=== PATIENT | female | born 1975 | race Caucasian/White ===

== ENCOUNTER 2023-11-26 12:42 | Emergency (ER) | payer BC ==
[2023-11-26 13:16] VITALS: RESP 17
[2023-11-26] MEDS ORDERED: MECLIZINE HCL 25 MG TABLET (FP) ONE (13:33)
[2023-11-26] MEDS ORDERED: ACETAMINOPHEN 325 MG TABLET (FP) ONE (13:34)
[2023-11-26] MEDS: SODIUM CHLORIDE 0.9% 1000 ML INFUS.BAG IV ONE (13:53)
[2023-11-26] MEDS: MECLIZINE HCL 25 MG TABLET (FP) PO ONE (13:54)
[2023-11-26] MEDS: ACETAMINOPHEN 325 MG TABLET (FP) PO ONE (13:54)
[2023-11-26 14:05] LABS: HEMATOCRIT 33.9 % (32.4-45.2); MCHC 32.5 g/dl (32.0-36.0); MEAN CELL VOLUME 79.9 fl (80-96); MEAN PLT VOLUME 8.3 fl (7.5-11.1); PLATELET COUNT 280.3 10^3/uL (134-434); RBC 4.24 10^6/uL (3.60-5.2); RDW 16.4 % (11.6-15.6); WHITE BLOOD COUNT 7.3 10^3/uL (4.0-10.8)
[2023-11-26 14:06] LABS: HCG,QUALITATIVE URINE Negative
[2023-11-26 14:11] LABS: PLATELET ESTIMATE ADEQUATE
[2023-11-26 14:15] LABS: ALBUMIN 4.2 g/dl (3.4-5.0); BILIRUBIN,TOTAL 0.3 mg/dl (0.2-1); CALCIUM 8.8 mg/dl (8.5-10.1); CREATININE 0.9 mg/dl (0.6-1.3); POTASSIUM 3.9 mmol/L (3.5-5.1); TOT PROT 6.6 g/dl (6.4-8.2)
[2023-11-26 15:07] VITALS: BP 125/84; PULSE 87; TEMP 98.2; BMI 29.2
[2023-11-26] MEDS ORDERED: KETOROLAC TROMETHAMINE 30 MG/1 ML VIAL ONE (16:30)
[2023-11-26] MEDS: KETOROLAC TROMETHAMINE 30 MG/1 ML VIAL IVPUSH ONE (16:35)
== END 2023-11-26 17:14 | disposition home or self-care (01) ==
LOC: FER 12:42
PROC: 3E0333Z Introduction of Anti-inflammatory into Peripheral Vein, Percutaneous Approach (ICD-10-PCS; principal; 2023-11-26)
DX: M54.50 Low back pain, unspecified (principal); R10.9 Unspecified abdominal pain; R42 Dizziness and giddiness; Z20.822 Contact with and (suspected) exposure to COVID-19
CPT/HCPCS: 0241U-QW; 36415; 70450-TC; 74176-TC; 80053; 81003; 84703; 85027; 87086; 99284-25

== ENCOUNTER 2023-12-25 07:44 | Day surgery (SDC) | payer BC ==
[2023-12-15 11:54] VITALS: BMI 30.6
[2023-12-25 09:50] VITALS: TEMP 97
[2023-12-25 09:52] VITALS: RESP 18
[2023-12-25 09:54] VITALS: BP 110/65; PULSE 99
== END 2023-12-25 09:55 | disposition home or self-care (01) ==
LOC: FASU-ENDO 07:44
PROVIDERS: ATTEND Internal Medicine Gastroenterology
PROC: 0DJD8ZZ Inspection of Lower Intestinal Tract, Via Natural or Artificial Opening Endoscopic (ICD-10-PCS; principal; 2023-12-25 09:04)
DX: Z12.11 Encounter for screening for malignant neoplasm of colon (principal)
CPT/HCPCS: 81025